=== PATIENT | female | born 1955 | race Caucasian/White ===

== ENCOUNTER 2016-06-30 08:36 | Outpatient (CLI) | payer BC ==
[~2016-06-30] VITALS: Ht 158.8 cm; Wt 84.5 kg
--- NOTE | ~2016-06-30 | HEMODYNAMI ---
PATIENT:CATINA HERNDON MEDICAL RECORD: [id number] : 53 LOCATION:[facility] ADMISSION DATE: 06/30/16 Generatedon:06/30/201612:12 Patient name: CATINA HERNDON Patient #: [id number] SSN: : 1955 Date of study: 06/30/2016 Page: Of Hemodynamic Procedure Report Patient Data Patient Demographics Procedure consent was obtained First Name: CATINA Gender: Female Last Name: KATRINA : 1955 Middle Initial: BILLY Age: 61 year(s) Patient #: [id number] Race: Additional ID: [id number] Contact details [address]: [address] [place] [address] State: [place] City: [place] Zip code: [address] Past Medical History History of disease Date Diagnosis Comments Diabetes 04/16/2014 Hypertension Allergies Allergen Reaction Date Comments Reported MALENA inhibitors 04/16/2014 Other allergy 06/30/2016 MALENA Inhibitors. Admission Admission Data Admission Date: 06/30/2016 Admission Time: 8:36 Admit Source: Other Insurance Payor: Private health insurance Height (in.): 62 BSA: 1.85 (m2) Height (cm.): 157.48 BMI: 34.02 (kg/m2) Weight (lbs.): 186 Weight (kg.): 84.37 Medications upon Admission Medications Dosage Times Administered Last Remarks per Delivery Day Date and Time Clopidogrel Yes 06/29/2016 0:00 Lab Results Lab Result Date: 06/30/2016 Lab Result Time: 9:16 Biochemistry Name Units Result Min Max BUN mg/dl 14 --(--*-)-- 7 18 Creatinine mg/dl 0.6 --(*---)-- 0.6 1.3 CBC Name Units Result Min Max Hematocrit % 39.2 -*(----)-- 42 54 Hemoglobin g/dl 13.4 -*(----)-- 13.5 17.5 Procedure Procedure Types Cath Procedure Diagnostic Procedure [facility] w/Coronaries PCI Procedure PTCA Initial PTCA Additional Miscellaneous Procedures Moderate Sedation up to 45 minutes Procedure Description Procedure Date Procedure Date: 06/30/2016 Procedure Start Time: 11:32 Procedure End Time: 12:09 Procedure Staff Name Function Jennifer Rahat RT Scrub Wayne Sampson RN Nurse Renard Hernandez MD Performing Physician Nolberto Hernandez RT Monitor Procedure Data Cath Procedure Fluoroscopy Diagnostic fluoroscopy Total fluoroscopy Time: time: 14.6 min 14.6 min Diagnostic fluoroscopy Total fluoroscopy dose: dose: 1473.19 mGy 1473.19 mGy Contrast Material Contrast Material Type Amount (ml) Isovue 300 170 Entry Location Entry Primary Successful Side Size Upsize Upsize Entry Closure Haley ccessful Closure Location (Fr) 1 (Fr) 2 (Fr) Remarks Device Remarks Radial Right 6 Fr Mechanical artery Short Compression Estimated blood loss: 10 ml Diagnostic catheters Device Type Used For End Catheter Placement Terumo 5Fr Cross Timbers 110cm Procedure catheter Procedure Complications No complications Procedure Medications Medication Administration Route Dosage Oxygen NC 2 l/min Heparin Flush Bag added to field 2 bags (1000units/500ml NS) 0.9% NaCl I.V. 100 ml/hr Radial Cocktail added to field 1 syringe (Verapomil 2mg/Nitro 400mcg/Heparin 1500units) Fentanyl I.V. 50 mcg Versed I.V. 1 mg Radial Cocktail I.A. 1 syringe (Verapomil 2mg/Nitro 400mcg/Heparin 1500units) Fentanyl I.V. 50 mcg Versed I.V. 1 mg Heparin Bolus I.V. 4000 units Hemodynamics Rest BSA: 1.85 (m2) HGB: 13.4 (g/dl) O2 Consumption: Estimated: 180.4 (ml/min) O2 Con sumption indexed: Estimated:97.51 (ml/min/m) Heart Rate: 79 (bpm) Snapshots Pre Cath Intra NCS Post Cath Vital Signs Time Heart Resp SPO2 NIBP (mmHg) Rhythm Pain Sedation Rate (ipm) (%) Status Level (bpm) 10:59:39 80 18 97 168/93(138) NSR 0 (11) 10(A) , No pain 11:04:12 78 19 96 158/96(139) NSR 0 (11) 10(A) , No pain 11:08:38 79 18 96 160/95(130) NSR 0 (11) 10(A) , No pain 11:13:06 80 21 96 155/89(138) NSR 0 (11) 10(A) , No pain 11:17:34 77 20 96 147/88(126) NSR 0 (11) 10(A) , No pain 11:21:59 78 20 95 141/87(115) NSR 0 (11) 10(A) , No pain 11:26:21 77 20 93 145/83(120) NSR 0 (11) 10(A) , No pain 11:30:43 76 19 92 129/80(109) NSR 0 (11) 9(A) , No pain 11:35:03 80 20 93 134/84(117) NSR 0 (11) 9(A) , No pain 11:39:28 81 20 93 139/76(111) NSR 0 (11) 9(A) , No pain 11:43:50 79 18 92 134/80(104) NSR 0 (11) 9(A) , No pain 11:48:04 80 20 93 128/79(111) NSR 0 (11) 9(A) , No pain 11:52:20 82 20 94 147/89(124) NSR 0 (11) 9(A) , No pain 11:56:46 82 20 93 152/87(132) NSR 0 (11) 9(A) , No pain 12:01:10 83 21 94 152/93(125) NSR 0 (11) 9(A) , No pain 12:04:29 82 20 93 153/91(129) NSR 0 (11) 9(A) , No pain 12:08:57 92 142/82(123) NSR 0 (11) 9(A) , No pain Medications Time Medication Route Dose Verified Delivered Reason Note s Effectiveness by by 11:12:36 Oxygen NC 2 l/min Wayne Black Per physician Adrián Sampson RN RN 11:12:44 Heparin Flush added 2 bags Wayne Black used for Bag to Adrián Sampson RN procedure (1000units/500ml field RN NS) 11:12:58 0.9% NaCl I.V. 100 Wayne Black Per physician ml/hr Adrián Sampson RN RN 11:13:06 Radial Cocktail added 1 Wayne Wayne used for (Verapomil to syringe Adrián Sampson RN procedure 2mg/Nitro field RN 400mcg/Hepari 11:26:21 Fentanyl I.V. 50 mcg Wayne Wayne for sedation Adrián Sampson RN RN 11:26:30 Versed I.V. 1 mg Wayne Wayne for sedation Adrián Sampson RN RN 11:33:37 Radial Cocktail I.A. 1 Wayne Renard for (Verapomil syringe Adrián Hernandez MD vasodilation 2mg/Nitro RN 400mcg/Hepari 11:33:44 Fentanyl I.V. 50 mcg Wayne Wayne for sedation Adrián Sampson RN RN 11:33:52 Versed I.V. 1 mg Wayne Wayne for sedation Adrián Sampson RN RN 11:39:03 Heparin Bolus I.V. 4000 Wayne Wayne for units Adrián Sampson RN anticoagulation editorial director Log Time Note 10:37:29 Informed consent obtained and on chart 10:38:32 Jennifer Giang RT(R) sent for patient. Start room use. 10:41:53 Lab Result : Hemoglobin 13.4 g/dl 10:41:53 Lab Result : Hematocrit 39.2 % 10:41:53 Lab Result : BUN 14 mg/dl 10:41:53 Lab Result : Creatinine 0.6 mg/dl 10:51:48 Patient received from Pre/Post Procedure Room to CCL 3 Alert and oriented. Tansferred to table in Supine position. 10:51:50 Warm blankets applied, and leann hugger turned on for patient comfort. 10:51:51 Correct patient and procedure confirmed by team. 10:51:52 ECG and BP/O2 sat monitors applied to patient. 10:58:13 Vital chart was started 10:58:17 Rhythm: sinus rhythm 11:06:12 Baseline sample Acquired. 11:06:50 H&P Date Dictated: 06/26/2016 Within 30 days and on chart., H&P Addendum completed by physician on day of procedure. (MUST COMPLETE FOR ALL OUTPATIENTS). 11:06:51 Pre-op teaching completed and patient verbalized understanding. 11:06:51 Pre-procedure instructions explained to patient. 11:06:52 Family in waiting room. 11:06:54 Patient NPO since Midnight. 11:07:09 Patient allergic to Other allergyACE Inhibitors. 11:07:12 Is the patient allergic to Iodine/contrast media? No. 11:08:11 Is patient on blood thinner?Yes 11:08:13 ACC The patient was administered the following blood thiners within the last 24 hours: ACCPlavix 11:08:15 Patient diabetic? Yes. 11:08:16 If diabetic: On Metformin? Yes 11:08:18 If on Metformin: Last Dose? 06/28/2016 11:08:21 Previous problem with sedation/anesthesia? No ? 11:08:23 Snore? Yes 11:08:24 Sleep apnea? No 11:08:25 Deviated septum? No 11:08:26 Sticks out tongue? Yes 11:08:26 Opens mouth fully? Yes 11:08:29 Airway obstruction? No ? 11:08:32 Dentures? Yes out 11:08:38 Modified Xavier's test Ulnar < 7 seconds 11:08:39 Patient pain scale 0/10 ?. 11:08:45 IV patent on arrival in left forearm with 0.9% NaCl at [facility]. 11:08:48 Lab results completed and on chart. 11:08:51 Alarms reviewed by R. N. 11:08:51 Right Radial & Right Groin area was prepped with chlora-prep and draped in sterile fashion 11:08:52 Sharps counted by scrub and verified by R.N. 11:08:55 Use device set Radial Dx 11:08:56 Acist Manifold opened to sterile field. 11:08:56 Tegaderm 4 x 4 opened to sterile field. 11:08:57 Acist Hand Control opened to sterile field. 11:08:58 Medline Cath Pack opened to sterile field. 11:08:58 Acist Syringe opened to sterile field. 11:09:00 Terumo 6Fr Slender Glidesheath opened to sterile field. 11:09:00 Bag Decanter opened to sterile field. 11:09:01 St Andre 260cm J .035 wire opened to sterile field. 11:10:24 Patient Height : 157.48 inches 11:10:29 Insurance Payor : Private health insurance 11:10:29 Patient Weight : 84.37 lbs 11:10:40 Admit Source: Other 11:10:50 ACC Patient presents with Stable Angina CCS Anginal Class 2--Slight limitation of ordinary activity. 11:12:36 Oxygen 2 l/min NC was given by Wayne Sampson RN; Per physician; 11:12:44 Heparin Flush Bag (1000units/500ml NS) 2 bags added to field was given by Wayne Sampson RN; used for procedure; 11:12:58 0.9% NaCl 100 ml/hr I.V. was given by Wayne Sampson RN; Per physician; 11:13:06 Radial Cocktail (Verapomil 2mg/Nitro 400mcg/Heparin 1500units) 1 syringe added to field was given by Wayne Sampson RN; used for procedure; 11:13:34 Zero performed for pressure channel P1 11:13:37 Zero performed for pressure channel P1 11:13:40 Zero performed for pressure channel P1 11:15:13 Zero performed for pressure channel P1 11:15:17 Zero performed for pressure channel P1 11:15:20 Zero performed for pressure channel P1 11:25:32 --------ALL STOP TIME OUT------ 11:25:33 Final Timeout: patient, procedure, and site verified with staff and physician. All members of the team are in agreement. 11:25:35 Right Radial & Right Groin site verified by team. 11:25:38 Physical assessment completed. ASA score P 2 - A patient with mild systemic disease as per Renard Hernandez MD. 11:25:41 Sedation plan: IV Moderate Sedation Versed, Fentanyl 11:26:21 Fentanyl 50 mcg I.V. was given by Wayne Sampson RN; for sedation; ::30 Versed 1 mg I.V. was given by Wayne Sampson RN; for sedation; ::17 Full Disclosure recording started ::17 Procedure started. 11::23 Local anesthetic to right radial artery with Lidocaine 2% by Renard Hernandez MD.INITIAL ACCESS ONLY 11:32:31 A 6 Fr Short sheath was inserted into the Right Radial artery 11:33:37 Radial Cocktail (Verapomil 2mg/Nitro 400mcg/Heparin 1500units) 1 syringe I.A. was given by Renard Hernandez MD; for vasodilation; 11:33:43 A Terumo 5Fr Cross Timbers 110cm catheter was advanced over the wire and used for Procedure. 11:33:44 Fentanyl 50 mcg I.V. was given by Wayne Sampson RN; for sedation; 11:33:48 LV gram done using MOY 11:33:51 Injector settings: Ml/sec: 5, Volume: 15, 11:33:52 Versed 1 mg I.V. was given by Wayne Sampson RN; for sedation; 11:34:17 EF : 50 % 11:34:40 LCA angiography performed. 11:36:28 RCA angiography performed. 11:37:34 Sungy Mobile BasixCompak Inflation Kit opened to sterile field. 11:37:35 Bradley Whisper J 300cm 0.014 guide wire opened to sterile field. 11:38:46 Catheter removed. 11:38:54 Medtronic Launcher 6Fr AR 2.0 guide catheter opened to sterile field. 11:39:00 6 Fr AR 2 guide catheter was inserted over the wire 11:39:03 Heparin Bolus 4000 units I.V. was given by Wayne Sampson RN; for anticoagulation; 11:39:26 whisper wire advanced. 11:40:36 ACC PCI Site: dRCA has 80% stenosis. 11:40:38 ACC Pre-intervention RANJANA Flow is 3. 11:40:45 Wire advanced across lesion. 11:43:32 Wire removed. damaged. 11:43:38 Bradley Whisper J 300cm 0.014 guide wire opened to sterile field. 11:43:45 whisper wire advanced. 11:43:47 Wire advanced across lesion. 11:44:42 The Medtronic Resolute 3.0 X 12 stent was advanced then removed because of failure to cross lesion 11:46:35 Inflation number: 1 A Euphora 2.5 x 12 Balloon was prepped and advanced across the R PDA, then inflated to 13 CAROL for 0:10 (min:sec). 11:46:46 Inflation number: 2 The Euphora 2.5 x 12 Balloon was reinflated across the R PDA, to 13 CAROL for 0:10 (min:sec). 11:47:33 Inflation number: 3 The Euphora 2.5 x 12 Balloon was reinflated across the R PDA, to 19 CAROL for 0:10 (min:sec). 11:47:51 Inflation number: 4 The Euphora 2.5 x 12 Balloon was reinflated across the R PDA, to 21 CAROL for 0:10 (min:sec). 11:48:25 Inflation number: 5 The Euphora 2.5 x 12 Balloon was reinflated across the R PDA, to 23 CAROL for 0:10 (min:sec). 11:48:26 Balloon removed over the wire. 11:51:33 [place] Sci Choice PT Extra Support J 300cm .014 gu opened to sterile field. 11:51:59 PT extra support wire advanced. 11:52:00 Wire advanced across lesion. 11:53:00 whisper wire removed 11:53:34 The Medtronic Resolute 3.0 X 12 stent was advanced then removed because of failure to cross lesion 11:54:43 Inflation number: 6 A Euphora 3.0 x 10 balloon was prepped and advanced across the R PDA, then inflated to 13 CAROL for 0:10 (min:sec). 11:56:12 Inflation number: 7 The Euphora 3.0 x 10 balloon was reinflated across the R PDA, to 17 CAROL for 0:10 (min:sec). 11:56:16 [place] Sci Choice PT Extra Support J 300cm .014 gu opened to sterile field. 11:56:25 choice PT es wire advanced. 11:57:23 Balloon removed over the wire. 12:00:25 The Medtronic Resolute 3.0 X 12 stent was advanced then removed because of failure to cross lesion 12:01:17 Inflation number: 1 The Euphora 3.0 x 10 balloon was reinflated across the R PAV, to 15 CAROL for 0:10 (min:sec). 12:02:03 Balloon removed over the wire. 12:02:04 Wire removed. 12:02:05 Wire removed. 12:03:38 Guide catheter removed. 12:03:47 Terumo TR Band Standard opened to sterile field. 12:03:59 Sheath removed intact; hemostasis achieved with Mechanical Compression to the Right Radial artery. 12:04:00 Procedure ended.(Physican Out) 12:04:57 Fluoroscopy time 14.60 minutes. 12:05:07 Fluoroscopy dose: 1473.19 mGy 12:05:07 Flurop Dose total: 1473.19 12:06:08 Contrast amount:Isovue 300 170ml. 12:06:09 Sharps counted by scrub and verified by R.N. 12:06:12 TR band inflated with 12cc of air. 12:06:13 Insertion/operative site no bleeding no hematoma. 12:06:19 Post right radial artery:stable, soft, clean and dry 12:06:20 Post Procedure Pulses reassessed and unchanged 12:06:22 Post-procedure physical assessment completed. ASA score P 2 - A patient with mild systemic disease as per Renard Hernandez MD. 12:06:24 Post procedure rhythm: unchanged. 12:06:30 Estimated blood loss: 10 ml 12:06:58 Patient needs reinforcement of post procedure teaching. 12:06:58 Post procedure instruction explained to patient.Patient verbalizes understanding. 12:07:48 Procedure type changed to Cath procedure, Diagnostic procedure, LHC, LHC w/Coronaries, PCI procedure, PTCA Initial, PTCA Additional, Miscellaneous Procedures, Moderate Sedation up to 45 minutes 12:09:31 Procedure and supply charges have been captured, reviewed, submitted and are correct. 12:09:33 Procedure Complication : No complications 12:09:35 See physician's report for complete and final results. 12:09:35 Vital chart was stopped 12:09:37 Report given to Pre/Post Procedure Room. 12:09:39 Patient transfered to Pre/Post Procedure Room with Stretcher. 12:09:40 Full Disclosure recording stopped 12:09:40 Procedure ended. 12:10:27 ACC-PCI Only Patient was given prescriptions, or instructed by Renard Hernandez MD to start/continue the following medications upon discharge: Plavix 12:10:57 End room use (Document Last) Intervention Summary Intervention Notes Time ActionType Lesion and Equipment Action# Pressure Duration Attributes Used 11:44:42 Discard Medtronic Stent Resolute 3.0 X 12 stent 11:46:35 Inflate R PDA Euphora 1 13 00:10 balloon 2.5 x 12 Balloon 11:46:46 Reinflate R PDA Euphora 2 13 00:10 balloon 2.5 x 12 Balloon 11:47:33 Reinflate R PDA Euphora 3 19 00:10 balloon 2.5 x 12 Balloon 11:47:51 Reinflate R PDA Euphora 4 21 00:10 balloon 2.5 x 12 Balloon 11:48:25 Reinflate R PDA Euphora 5 23 00:10 balloon 2.5 x 12 Balloon 11:53:34 Discard Medtronic Stent Resolute 3.0 X 12 stent 11:54:43 Inflate R PDA Euphora 6 13 00:10 balloon 3.0 x 10 balloon 11:56:12 Reinflate R PDA Euphora 7 17 00:10 balloon 3.0 x 10 balloon 12:00:25 Discard Medtronic Stent Resolute 3.0 X 12 stent 12:01:17 Reinflate R PAV Euphora 1 15 00:10 balloon 3.0 x 10 balloon Device Usage Item Name Manufacture Quantity Catalog Number Hospital Part Current Minim al Lot# / Charge Number Stock Stock Serial# Code Tegaderm 4 1 [id number] [id number] 216215 [id number] 5 x 4 Acist Acist 1 27256 476538 308330 249996 5 GiftLauncher Medical Systems Inc Acist Hand Acist 1 32225 367441 322624 911829 5 McPhy Systems Mobango Acist Acist 1 16201 914837 515503 613419 20 Syringe Medical Systems Inc Medline Cardinal 1 [id number] 521152 76796 283433 5 Cath Pack Health Bag Microtek 1 2002S 572479 97580 816872 5 Osmetech Inc. Terumo 6Fr Terumo 1 [id number] 985345 068556 363139 [address] Andre 1 [id number] 558924 568160 558122 30 260cm J .035 wire Terumo 5Fr Terumo 1 40-9362 108030 040652 527223 5 Cross Timbers 110cm catheter Merit Merit 1 [id number] 231020 134720 758387 15 [facility] Inflation Kit Bradley Bradley 2 [id number] 296075 094883 584954 5 Whisper J Vascular 300cm 0.014 guide wire Medtronic Medtronic 1 [id number] 803672 67877 884491 1 Launcher 6Fr AR 2.0 guide catheter Medtronic Medtronic 1 [id number] 147780 276287 7 [id number] Resolute 3.0 X 12 stent Euphora 2.5 Medtronic 1 [id number] 378267 798506 026750 5 [id number] x 12 Balloon [place] Sci [place] 2 [id number] 729819 530385 336113 5 Choice PT Scientific Extra Support J 300cm .014 gu Euphora 3.0 Medtronic 1 [id number] 770956 979794 046469 5 [id number] x 10 balloon Terumo TR Terumo 1 [id number] 643124 508234 497489 40 Band Standard Signature Audit [place] Stage Time Signature Unsigned Intra-Procedure 06/30/2016 Nolberto Hernandez 12:12:15 PM RT(R) Signatures Monitor : Nolberto Hernandez RT Signature : Date : Time : [id number] [place] [address]
[~2016-06-30 08:36] MED LIST: AMARYL1 MG; ASPIRIN EC81 M1 PO; CALTRATE 600 M600 M1; CORDARONE200 MG PO; FLUTICASONE PRO16 GM NS; GLUCOPHAGE1000 MG PO; HYDROCHLOROTHIA25 MG PO; HYDROCODON-ACE1 EA12 PO; IMDUR60 MG PO; METOPROLOL TAR100 M1 PO; MULTIPLE VITAMI1 TA1 PO; NIASPAN500 MG PO; NITROSTAT0.4 MG SL; NORVASC10 MG PO; PLAVIX75 MG PO; PRAVACHOL40 MG PO; PROSCAR5 MG PO; SYNTHROID75 MCG PO; VASERETIC 10-251 TAB
[2016-06-30] MEDS ORDERED: BUSPAR 15 MG TA15 MG PO (09:02)
[2016-06-30] MEDS ORDERED: GABAPENTIN100 MG PO (09:03)
[2016-06-30] MEDS ORDERED: VASOTEC20 MG PO (09:04)
[2016-06-30] MEDS ORDERED: IPRAT-ALBUT 0.5-3 ML UPD (09:07)
[2016-06-30 09:15] VITALS: BP 155/83; Ht 158.8 cm; Wt 84.5 kg
[2016-06-30 09:18] LABS: BASOPHILS 0.5 % (0.0-2.0); EOSINOPHILS 3.8 % (0-7); HEMATOCRIT 39.2 % (36.0-48.0); HEMOGLOBIN 13.4 g/dL (12-16); IMMATURE GRANULOCYTES 0.2 % (0-5); LYMPHOCYTES 20.8 % (15-50); MCHC 34.2 g/dL (31.0-37.0); MCV 90.7 fL (80.0-100.0); MEAN PLATELET VOLUME 10.1 fL (7.4-10.4); MONOCYTES 7.8 % (2-11); NEUTROPHILS 66.9 % (40-80); PLATELET COUNT 273 10x3/uL (130-400); RBC 4.32 10x6/uL (4.00-5.40); RDW 13.5 % (11.5-14.5); WBC 9.3 10x3/uL (4.8-10.8)
[2016-06-30 09:43] LABS: CALC OSMOLALITY 275 mosm/kg (275-300); CALCIUM 9.4 mg/dL (8.5-10.1); CARBON DIOXIDE 27.5 mmol/L (21.0-32.0); CHLORIDE - SERUM 99 mmol/L (98-107); CREATININE - SERUM 0.6 mg/dL (0.6-1.3); GLUCOSE 148 mg/dL (74-106); POTASSIUM - SERUM 4.2 mmol/L (3.5-5.1); SODIUM 136 mmol/L (136-145); UREA NITROGEN 14 mg/dL (7-18); eGFR NON AFRICAN AMERICAN > 90 mL/min (90-120)
--- NOTE | 2016-06-30 12:36 | NUR ---
VOIDED 600CC VIA BEDPAN. VITALS ALL WNL. R WRIST REMAINS C/D/I WITH NO HEMATOMA OR BLEEDING.
--- NOTE | 2016-06-30 15:09 | NUR ---
UP FROM BED, WHEELCHAIRED TO BATHROOM TO VOID. BACK TO BEDSIDE. SITTING UP. ALL VITASL WNL. R WRIST TR BAND REMAINS C/D/I WITH NO HEMATOMA OR BLEEDING.
--- NOTE | 2016-06-30 15:36 | NUR ---
2CC AIR REMOVED FROM R WRIST TR BAND. WILL MONITOR CLOSELY FOR BLEEDING. PIV REMOVED FROM LEFT HAND WITH BANDAID APPLIED.
--- NOTE | 2016-06-30 15:59 | NUR ---
REMAINING AIR REMOVED FROM TR BAND, TR BAND REMOVED AND TEGADERM AND 2X2 APPLIED. BRACE REMAINS IN PLACE. D/C INSTRUCTIONS DISCUSSED WITH PATIENT AND FAMILY AT BEDSIDE. WHEELED OUT VIA WHEELCHAIR.
--- NOTE | 2016-07-10 10:08 | OP ---
PATIENT NAME: CATINA HERNDON MEDICAL RECORD: [id number] :53 LOCATION:D.CAT ADMISSION DATE: SURGEON: KORY RAMIREZ MD DATE OF OPERATION: 06/30/2016 PROCEDURES: 1. PTCA RCA PLV. 2. PTCA RCA PDA. 3. Left heart catheterization. 4. Selective coronary angiography. 5. Left ventriculogram. INDICATION: Angina and coronary artery disease. PROCEDURE IN DETAIL: After informed consent was obtained and after detailed explanation of risks, benefits as well as alternative therapies, the patient elected to proceed with angiogram and angioplasty. The right radial area was prepped and draped in normal sterile fashion. Right radial artery was cannulated via modified Seldinger technique with placement of 6-Bruneian sheath. All catheters exchanged through this sheath. FINDINGS: The left ventriculogram was performed in standard 30-degree MOY view, reveals good cardiac wall motion throughout all segments. Overall ejection fraction estimated at 60%. SELECTIVE CORONARY ANGIOGRAPHY: 1. Left main is with no significant angiographic disease. 2. Left anterior descending has previously placed stents in the diagonal, this is widely patent. The LAD itself is totally occluded in mid vessel, is a chronic total occlusion, unchanged from previous angiography. 3. Left circumflex has moderate irregularities, but no flow-limiting stenosis. 4. The right coronary has previously placed stents, these are widely patent. However, distally at the bifurcation of the PDA and PLV, there is at least 70% to 80% in-stent restenosis. PTCA FOR IN-STENT RESTENOSIS: We ballooned the stent going from the RCA to the PDA. This yielded a plaque shift to the PLV. We then wired the PLV and ballooned this with 3.0 balloon of 21 atmospheres. Result was 0% residual. IMPRESSION: Successful percutaneous transluminal coronary angioplasty stent of the distal RCA angioplasty for in-stent restenosis, 70% to 80% to 0% residual stenosis. TRANSINT:[id number] Voice Confirmation ID: [id number] DOCUMENT ID: [id number] KORY RAMIREZ MD at 1008 CC: [id number] DICTATION DATE: 06/30/16 1206 FRAME MAKER: 06/30/16 1856 DEP CLI 06/30/16 [place] [address]
== END 2016-06-30 16:01 | disposition home or self-care (01) ==
LOC: D.CATH 08:36
PROVIDERS: Internal Medicine Interventional Cardiology
DX: I25.119 Atherosclerotic heart disease of native coronary artery with unspecified angina pectoris (principal); I25.82 Chronic total occlusion of coronary artery; T82.855A Stenosis of coronary artery stent, initial encounter

== ENCOUNTER → 2017-01-25 13:55 | Outpatient (CLI) | payer BC ==
[2016-06-30 09:15] VITALS: BMI 33.5
[~2017-01-25 13:55] MED LIST changes: +BUSPAR 15 MG TA15 MG PO; +GABAPENTIN100 MG PO; +IPRAT-ALBUT 0.5-3 ML UPD; +VASOTEC20 MG PO
== END | disposition home or self-care (01) ==
LOC: D.MAMMO 13:55
DX: Z12.31 Encounter for screening mammogram for malignant neoplasm of breast (principal)

== ENCOUNTER → 2017-03-12 08:42 | Outpatient (CLI) | payer BC ==
[2016-06-30 09:15] VITALS: BMI 33.5
[~2017-03-12 08:42] MED LIST changes: -CALTRATE 600 M600 M1; +CALTRATE 600 M600 M1 PO; +COREG25 MG PO; +FLUTICASONE PRO16 GM NASAL; +PROVENTIL HFA6.7 GM INH; +ROBITUSSIN DM 110 ML PO
== END | disposition home or self-care (01) ==
LOC: D.RT 08:42
DX: R06.00 Dyspnea, unspecified (principal)

== ENCOUNTER 2017-04-05 08:00 | Outpatient (CLI) | payer BC ==
[~2017-04-05] VITALS: Ht 157.5 cm; Wt 85.5 kg
[~2017-04-05 08:00] MED LIST changes: -COREG25 MG PO; -FLUTICASONE PRO16 GM NASAL; -PROVENTIL HFA6.7 GM INH; -ROBITUSSIN DM 110 ML PO
[2017-04-05] MEDS ORDERED: COREG25 MG PO (11:45)
[2017-04-05] MEDS ORDERED: FLUTICASONE PRO16 GM NASAL (11:46)
[2017-04-05] MEDS ORDERED: PROVENTIL HFA6.7 GM INH (11:46)
[2017-04-05 11:51] VITALS: BP 144/80; Ht 157.5 cm; Wt 85.5 kg
[2017-04-05 11:58] LABS: HEMATOCRIT 43.8 % (36.0-48.0); HEMOGLOBIN 14.8 g/dL (12-16); MCH 30.5 pg (26.0-34.0); MCHC 33.8 g/dL (31.0-37.0); MCV 90.3 fL (80.0-100.0); MEAN PLATELET VOLUME 10.3 fL (7.4-10.4); RBC 4.85 10x6/uL (4.00-5.40); RDW 14.7 % (11.5-14.5); WBC 10.5 10x3/uL (4.8-10.8)
[2017-04-05 12:36] LABS: CALC OSMOLALITY 273 mosm/kg (275-300); CALCIUM 9.1 mg/dL (8.5-10.1); CARBON DIOXIDE 25.8 mmol/L (21.0-32.0); CHLORIDE - SERUM 100 mmol/L (98-107); CREATININE - SERUM 0.6 mg/dL (0.6-1.3); GLUCOSE 147 mg/dL (74-106); POTASSIUM - SERUM 4.6 mmol/L (3.5-5.1); SODIUM 136 mmol/L (136-145); UREA NITROGEN 11 mg/dL (7-18); eGFR NON AFRICAN AMERICAN > 90 mL/min (90-120)
--- NOTE | 2017-04-05 16:22 | NUR ---
1440 DISCHARGE INSTRUCTIONS COMPLETE. PT HAS NO QUESTIONS OR CONCERNS AT THIS TIME. BARIUM SWALLOW SCHEDULED. ESCORTED OUT BY VOLUNTEER.
--- NOTE | 2017-04-11 12:46 | OP ---
PATIENT NAME: CATINA HERNDON MEDICAL RECORD: [id number] :53 LOCATION:[facility] ADMISSION DATE: SURGEON: MARVIN ENG MD DATE OF OPERATION: 04/05/2017 PROCEDURE: EGD with biopsy and colonoscopy with polypectomy. INDICATIONS: Ms. 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 She has had a history of paroxysmal dysphagia, which she attributes to possible impingement of hardware from her C-spine surgery. She has had no nausea, vomiting, abdominal pain, melena, hematochezia, or abnormal weight loss. She presents for outpatient EGD and screening colonoscopy. PREMEDICATIONS: Total IV anesthesia (propofol 390 mg), coronary artery disease (ASA 3). INSTRUMENT: Olympus video gastroscope and Olympus video colonoscope. PROCEDURE AND FINDINGS: After receiving informed consent, Ms. Herndon was first prepared for EGD. Her posterior pharynx was anesthetized with Cetacaine spray, placed in left lateral decubitus position, sedated as per anesthesia. After achieving adequate sedation, gastroscope was introduced per orally and advanced to the duodenum without difficulty. The esophageal mucosa was without ulcers or masses. There was no Schatzki's ring appreciated on this exam, but the GE junction was remarkable for an irregular Z-line. Biopsies were taken from the distal third of the esophagus. Small sliding type hiatal hernia was present. Gastric mucosa was notable for mild prepyloric and antral erythema and antral biopsies were obtained to rule out Helicobacter pylori. No lesions were seen in the cardia, fundus of the stomach. There was a mild nodularity to the appearance of the mucosa in the body of the stomach and biopsies were obtained. Pylorus was patent and competent. Duodenal mucosa was without erythema or ulcers, appeared normal through the second portion. Gastroscope was then withdrawn. She was prepared for colonoscopy. Digital rectal exam was performed that showed no external hemorrhoidal tags, fissure, or fistulas. Normal sphincter tone. No palpable rectal masses. Colonoscope was introduced per rectally and advanced to the cecum without difficulty. The cecum, IC valve, and appendiceal orifice were identified. Within the cecum was a solitary diverticulum. In the appendiceal orifice area was a diminutive 0.25-0.3 cm sessile polyp removed with hot biopsy forcep technique. Additionally, within the cecum was a 0.75 cm sessile polyp removed with hot biopsy forceps technique. A few diverticula were seen in the ascending colon and likewise in the sigmoid colon. In the sigmoid colon was a 0.3 cm sessile polyp removed with hot biopsy forcep technique. Retroflexion in rectum showed no internal hemorrhoids. A good prep was present. Ms. Herndon tolerated the procedure well, no immediate complications. ASSESSMENT: 1. Small sliding type hiatal hernia. 2. Mild gastritis. 3. Mild diverticulosis of the sigmoid, transverse, ascending colon, and cecum. 4. Two cecal polyps status post polypectomy. OPERATIVE REPORT [id number] KATRINACATINA BILLY 5. Sigmoid polyp status post polypectomy. RECOMMENDATIONS: 1. Follow up histopathology. 2. Avoid aspirin, nonsteroidal anti-inflammatory drugs for 14 days post-polypectomy. 3. Resume Plavix. 4. Barium swallow to rule out posterior pharyngeal etiology of pill dysphagia. 5. Surveillance colonoscopy in 3 years. TRANSINT:[id number] Voice Confirmation ID: [id number] DOCUMENT ID: [id number] MARVIN ENG MD at 1246 CC: JHOAN GORDON MD [id number] DICTATION DATE: 04/05/17 1340 MOLTEN IRON POURER: 04/05/17 1356 DEP CLI 04/05/17 [facility] [address] [place] [address]
== END 2017-04-05 23:59 | disposition home or self-care (01) ==
LOC: D.OPS 08:00 → EDSTATUS 12:30 → D.OPS 12:30
PROVIDERS: Anesthesiology
DX: Z12.11 Encounter for screening for malignant neoplasm of colon (principal); K44.9 Diaphragmatic hernia without obstruction or gangrene; K29.50 Unspecified chronic gastritis without bleeding; K57.30 Diverticulosis of large intestine without perforation or abscess without bleeding; K63.5 Polyp of colon; I25.10 Atherosclerotic heart disease of native coronary artery without angina pectoris; Z01.812 Encounter for preprocedural laboratory examination

== ENCOUNTER 2017-04-09 06:28 | Emergency (ER) | payer BC ==
[2017-04-05 11:51] VITALS: BMI 34.4
[~2017-04-09 06:28] MED LIST changes: +COREG25 MG PO; +FLUTICASONE PRO16 GM NASAL; +PROVENTIL HFA6.7 GM INH
[2017-04-09 07:06] LABS: BASOPHILS 0.2 % (0-2); HEMATOCRIT 42.6 % (36.0-48.0); HEMOGLOBIN 14.5 g/dL (12-16); IMMATURE GRANULOCYTES 0.1 % (0-5); LYMPHOCYTES 12.2 % (15-50); MCH 30.3 pg (26.0-34.0); MCV 89.1 fL (80.0-100.0); MEAN PLATELET VOLUME 9.7 fL (7.4-10.4); MONOCYTES 7.2 % (2-11); NEUTROPHILS 79.3 % (40-80); PLATELET COUNT 214 10x3/uL (130-400); RBC 4.78 10x6/uL (4.00-5.40); RDW 14.2 % (11.5-14.5); WBC 8.3 10x3/uL (4.8-10.8)
[2017-04-09 07:14] LABS: INR 0.99 (0.85-1.17); PROTIME 12.7 SECONDS (11.6-15.0)
[2017-04-09 07:15] LABS: APTT 32.8 SECONDS (22.8-39.4)
[2017-04-09 07:32] LABS: ALBUMIN 3.5 g/dL (3.4-5.0); ALKALINE PHOSPHATASE 51 U/L (46-116); ALT (SGPT) 20 U/L (10-68); BILIRUBIN - TOTAL 0.38 mg/dL (0.2-1.3); CALC OSMOLALITY 273 mosm/kg (275-300); CALCIUM 9.5 mg/dL (8.5-10.1); CARBON DIOXIDE 25.8 mmol/L (21.0-32.0); CHLORIDE - SERUM 98 mmol/L (98-107); CREATININE - SERUM 0.6 mg/dL (0.6-1.3); GLUCOSE 193 mg/dL (74-106); POTASSIUM - SERUM 3.7 mmol/L (3.5-5.1); PROTEIN - SERUM 7.3 g/dL (6.4-8.2); SODIUM 135 mmol/L (136-145); UREA NITROGEN 9 mg/dL (7-18); eGFR NON AFRICAN AMERICAN > 90 mL/min (90-120)
[2017-04-09 07:36] LABS: APPEARANCE HAZY (CLEAR); BILIRUBIN NEGATIVE (NEGATIVE); COLOR YELLOW (YELLOW); GLUCOSE 250 mg/dL (NEGATIVE); KETONE NEGATIVE (NEGATIVE); NITRITE POSITIVE (NEGATIVE); PROTEIN 2+ mg/dL (NEGATIVE); SPECIFIC GRAVITY 1.015 (1.005-1.020); UROBILINOGEN NORMAL (NORMAL)
[2017-04-09 07:39] LABS: BACTERIA MANY /hpf (NONE SEEN); RED CELLS - URINE 0-5 /hpf (0-5)
[2017-04-09 07:44] LABS: CKMB 4.9 U/L (0.0-3.6); CREATINE KINASE 201 UL (21-215); MAGNESIUM - SERUM 1.6 mg/dL (1.8-2.4); TROPONIN-I < 0.017 ng/mL (0.000-0.060)
== END 2017-04-09 10:08 | disposition other institution (70) ==
LOC: D.ER 06:28
PROVIDERS: Emergency Medicine
DX: I63.9 Cerebral infarction, unspecified (principal); I10 Essential (primary) hypertension; E11.9 Type 2 diabetes mellitus without complications

== ENCOUNTER 2017-04-12 14:49 | Inpatient (IN) | payer BC ==
[~2017-04-12] VITALS: Ht 157.5 cm; Wt 77.1 kg
[2017-04-12 18:20] VITALS: BP 110/69; BMI 31.1
--- NOTE | 2017-04-12 19:00 | NUR ---
INTRODUCED MYSELF TO PATIENT AND FAMILY MEMBERS. TOLD HER I HAVE NOT YET RECEIVED REPORT BUT WILL RETURN TO SEE HER AFTER SHIFT REPORT IS COMPLETE. VERIFIED SHE HAS NO CURRENT NEEDS.
[2017-04-12] MEDS ORDERED: ROBITUSSIN DM 110 ML PO (19:45)
--- NOTE | 2017-04-12 20:30 | NUR ---
REMAINS IN BED. DENIES CURRENT NEEDS. ONE OF HER SONS REMAINS AT BEDSIDE.
--- NOTE | 2017-04-12 21:30 | NUR ---
ASSISTED PATIENT TO SIT UP ON RIGHT SIDE OF BED AT HER REQUEST. SON TOOK A SEAT NEXT TO HER ON LEFT FOR SUPPORT. WILL CALL WHEN READY TO GET BACK IN BED.
--- NOTE | 2017-04-12 21:40 | NUR ---
ASSISTED PATIENT BACK INTO BED WITH ASSISTANCE FROM HER SON.
[2017-04-12 22:20] VITALS: BP 166/70
--- NOTE | 2017-04-12 22:20 | NUR ---
ASSESSMENT AND HS MEDS COMPLETE. MEDS GIVEN CRUSHED IN APPLESAUCE EXCEPT IMDUR 30MG WHICH SHE WAS ABLE TO SWALLOW SUCCESSFULLY WHEN GIVEN WHOLE IN APPLESAUCE. HOWEVER, DUE TO VERY LARGE SIZE OF NIACIN 500MG ER TAB, IT WAS HELD, IT CANNOT BE CRUSHED DUE TO SIDE EFFECTS. WILL KATE THIS UP WITH DR. SANTIAGO TOMORROW. REPOSITIONED PATIENT TO PARTIAL RIGH SIDELYING POSITION.
--- NOTE | 2017-04-12 23:05 | NUR ---
FSBS 118. TURNED PATIENT TO PARTIAL LEFT SIDELYING POSITION WITH PILLOWS FOR SUPPORT.
--- NOTE | 2017-04-13 00:20 | NUR ---
RESTING QUIETLY ON LEFT SIDE. NO DISCOMFORT EVIDENT.
--- NOTE | 2017-04-13 02:15 | NUR ---
CHANGED PATIENT'S POSITION FROM LEFT SIDELYING TO PARTIAL RIGHT SIDELYING WITH HOB UP 30 DEGREES.
--- NOTE | 2017-04-13 04:45 | NUR ---
RESTING QUEITLY IN BED, EYES CLOSED.
--- NOTE | 2017-04-13 05:15 | NUR ---
PATIENT WAS CLEANSED AND CHANGED FROM LARGE URINE INCONTINENCE. REQUIRED COMPLETE BED LINEN AND GOWN CHANGE. PATIENT HAD ATTEMPTED TO URINATE ON BEDPAN AROUND 0100 BUT PRODUCED ONLY A FEW DROPS OF URINE AT THAT TIME.
--- NOTE | 2017-04-13 06:10 | NUR ---
PATIENT SOMNOLENT AND DIFFICULT TO AWAKEN FULLY. RESPONDS TO TOUCH AND CALLING HER NAME. FSBS 126. WAS GOING TO HAVE HER SIGN ADMISSION DOCUMENTS WHICH I DEFERRED LAST NIGHT DUE TO THE LATENESS OF THE HOUR AND PATIENT BEING VERY TIRED. WILL HAVE TO HAVE THEM SIGNED ON DAY SHIFT WHEN PATIENT IS MORE ALERT.
[2017-04-13 07:36] LABS: BASOPHILS 0.5 % (0-2); EOSINOPHILS 2.8 % (0-7); HEMATOCRIT 45.4 % (36.0-48.0); HEMOGLOBIN 15.1 g/dL (12-16); IMMATURE GRANULOCYTES 0.4 % (0-5); LYMPHOCYTES 14.8 % (15-50); MCH 29.9 pg (26.0-34.0); MCHC 33.3 g/dL (31.0-37.0); MCV 89.9 fL (80.0-100.0); MEAN PLATELET VOLUME 10.6 fL (7.4-10.4); MONOCYTES 10.8 % (2-11); NEUTROPHILS 70.7 % (40-80); PLATELET COUNT 253 10x3/uL (130-400); RBC 5.05 10x6/uL (4.00-5.40); RDW 14.4 % (11.5-14.5); WBC 7.9 10x3/uL (4.8-10.8)
[2017-04-13 07:52] LABS: CALC OSMOLALITY 277 mosm/kg (275-300); CARBON DIOXIDE 24.2 mmol/L (21.0-32.0); CHLORIDE - SERUM 101 mmol/L (98-107); CREATININE - SERUM 0.6 mg/dL (0.6-1.3); POTASSIUM - SERUM 3.5 mmol/L (3.5-5.1); SODIUM 136 mmol/L (136-145); UREA NITROGEN 27 mg/dL (7-18); eGFR NON AFRICAN AMERICAN > 90 mL/min (90-120)
[2017-04-13 07:57] LABS: GLUCOSE 123 mg/dL (74-106)
--- NOTE | 2017-04-13 08:28 | NUR ---
SITTING UP EATING BREAKFAST. DENIES NEEDS.
[2017-04-13 11:00] VITALS: Ht 157.5 cm; Wt 77.1 kg
--- NOTE | 2017-04-13 11:17 | NUR ---
PATIENT ADMITTED TO REHAB FROM [facility]. DISCHARGE PLANS ARE FOR PATIENT TO HOPEFULLY TO RETURN HOME. WILL CONTINUE TO FOLLOW WITH PATIENT AND WILL ASSIST WITH DISCHARGE NEEDS.
--- NOTE | 2017-04-13 13:15 | NUR ---
PT COMPLAINS OF CHEST DISCOMFORT VITAL SIGNS NORMAL EKG AND CARDIAC ENZEMEYS PER DR ORDER PT STATES SHE TAKES NITRO AT HOME WILL ASK DR IF HE WANTS TO CONTINUE THIS MED WILL MONITER
[2017-04-13 14:31] LABS: CKMB 1.5 U/L (0.0-3.6); CREATINE KINASE 78 UL (21-215); TROPONIN-I 0.017 ng/mL (0.000-0.060)
--- NOTE | 2017-04-13 19:20 | NUR ---
PT. IN BED WITH HOB UP FOR COMFORT AND LYING ON HER SIDE. MULTIPLE FAMILY MEMBERS PRESENT AND SPOUSE SAID HE WILL BE STAYING THE NIGHT. ASSESSMENT COMPLETED. NO VOICED NEEDS AT THIS TIME AND HER CALL LIGHT IS WITHIN REACH.
[2017-04-13 19:55] VITALS: BP 112/60
--- NOTE | 2017-04-13 23:10 | NUR ---
PT. IN BED WITH HOB UP FOR COMFORT AND LYING ON HER LEFT SIDE WITH PILLOW AT BACK FOR SUPPORT. EYES CLOSED AND RESP. EVEN. SPOUSE ASLEEP IN CHAIR NEXT TO PT. CALL LIGHT WITHIN REACH.
--- NOTE | 2017-04-14 03:01 | NUR ---
PT. IN BED WITH HOB/FOB ELEVATED FOR COMFORT. PT. LYING ON HER RIGT SIDE. EYES CLOSED AND RESP. EVEN. SON NOW WITH PT. SPOUSE WENT HOME. CALL LIGHT WITHIN REACH.
[2017-04-14 09:40] VITALS: BP 118/62
--- NOTE | 2017-04-14 10:37 | NUR ---
PT PLACED ON BEDPAN TWICE THIS MORNING FEELING THE URGE TO USE THE RESTROOM, PT WAS UNABLE TO GO ONCE ON BEDPAN, ATE A FEW BITES OF BREAKFAST THEN STATED REALLY TIRED, ASKED IF SHE HAD TROUBLE SLEEPING PT STATED SLEPT FINE JUST ALWAYS TIRED. FAMILY AT BEDSIDE, BED IN LOW POSITION, CL IN REACH NO SIGNS OF DISTRESS, CONTINUE WITH PLAN OF CARE, TOLD PT WE NEEDED TO TURN HER MORE DUE TO REDNESS ON BACK AND BOTTOM.
--- NOTE | 2017-04-14 12:43 | NUR ---
PT REFUSED LUNCH. STATED HSE IS TOO TIRED TO EAT NOT HUNGRY. ENCOURAGED TO DRINK WATER AND ASKED IF SHE WANTED PUDDING, PT REFUSED AT THIS TIME
--- NOTE | 2017-04-14 16:00 | NUR ---
RESTING QUIETLY.CL IN REACH. AT BEDSIDE.
--- NOTE | 2017-04-14 19:20 | NUR ---
PT. IN BED LYING ON HER RIGHT SIDE. PT. HAS MULTIPLE FAMILY MEMBERS AND THEY ARE LEAVING FOR THE EVENING. SPOUSE WILL STAY TONIGHT. ASSESSMENT COMPLETED. NO VOICED NEEDS AT THIS TIME AND HER CALL LIGHT IS WITHIN REACH.
[2017-04-14 19:45] VITALS: BP 146/66
--- NOTE | 2017-04-14 23:10 | NUR ---
PT. WET AND PT. CLEANED AND LINENS CHANGED. REPOSITIONED PT. TO OTHER SIDE ALSO AT HER REQUEST. SPOUSE STAYING IN ROOM WITH PT. CALL LIGHT WITHIN REACH.
--- NOTE | 2017-04-15 03:00 | NUR ---
PT. IN BED WITH HOB UP FOR COMFORT AND IS LYING ON SIDE WITH PILLOWS AT BACK FOR SUPPORT. EYES CLOSED AND RESP. EVEN. SPOUSE IN ROOM AND IS ASLEEP. CALL LIGHT REMAINS WITHIN REACH.
--- NOTE | 2017-04-15 08:00 | NUR ---
PATIENT ALERT/OREINT X4. AT BEDSIDE. PATIENT IS A TOTAL ASST. UNABLE TO MOVE IN BED, UNABLE TO GET OUT OF BED WITHOUT HELP. BED ALARM ON PER PROTOCHOL. CALL LIGHT WITHIN REACH. PATIENT USING CALL LIGHT FOR NEEDS
--- NOTE | 2017-04-15 08:22 | NUR ---
PATIENT ALERT/ORIENT X4. AT BEDSIDE. PATIENT UNABLE TO MOVE IN BED OR GET OUT OF BED BY SELF. BED ALARM ON PER PROTOCHOL. CALL LIGHT WITHIN REACH.
[2017-04-15 08:37] VITALS: BP 146/59
--- NOTE | 2017-04-15 11:00 | NUR ---
PATIENT IS ASKED FOR A BED CRAFT. TOTAL ASST OF TWO TO PUT PATIENT ON A BED CRAFT. PATIENT IS FLACCID ON LEFT SIDE.
--- NOTE | 2017-04-15 14:47 | NUR ---
PATIENT HAS MULTIPLE VISITORS IN ROOM. VOICES NO NEEDS AT THIS TIME.
--- NOTE | 2017-04-15 17:27 | NUR ---
VISITORS AND FAMILY AT BEDSIDE.CL IN REACH.
--- NOTE | 2017-04-15 17:36 | NUR ---
PRN NORCO GIVEN FOR NECK AND BACK PAIN PER PATIENT REQUEST
--- NOTE | 2017-04-15 19:15 | NUR ---
PT. IN BED LYING ON LEFT SIDE WITH HOB UP FOR COMFORT. FAMILY MEMBERS PRESENT AND VISITING. CALL LIGHT WITHIN REACH.
--- NOTE | 2017-04-15 20:05 | NUR ---
TALKS TO PT AT ROOM.
--- NOTE | 2017-04-15 20:35 | NUR ---
MEDS GIVEN ORDERED.
[2017-04-15 22:18] VITALS: BP 106/39
--- NOTE | 2017-04-16 02:12 | NUR ---
REST QUIETLY IN BED, HOB 30 DEGREE, CALL LIGHT IN REACH.
--- NOTE | 2017-04-16 04:13 | NUR ---
REST QUIETLY IN BED, CALL LIGTH IN REACH.
--- NOTE | 2017-04-16 06:42 | NUR ---
RECEIVED CALL FROM THE DIET OFFICE THAT PT'S DIET HAS BEEN REMOVED FROM THE COMPUTER. I HAD A CONVERSATION WITH THE SPEECH THERAPIST ON SUNDAY AND SHE STATED THAT SHE HAD UPGRADED PT'S DIET TO MECHANICAL SOFT AND SHE WAS TO ORDER IT IN THE COMPUTER SHE HAD FILLED OUT PT'S WEEKEND MENUS SO THAT PT. WOULD GET THE UPGRADED DIET. SPOUSE REPORTED TO ME AT THE BEGINNING OF THE SHIFT THAT PT. DOESN'T LIKE GRAVY AND EVERYTHING THIS WEEKEND HAD GRAVY ON IT. I INFORMED SPOUSE THAT HE NEEDS TO GET WITH THE SPEECH THERAPIST TO LET HER, KAELA, KNOW PT'S LIKES AND DISLIKES TO PREVENT THIS FROM HAPPENING AGAIN, AND SPOUSE SAID HE WOULD. THIS INFO WILL ALSO BE PASSED ON TO NEXT SHIFT'S NURSE IN REPORT.
[2017-04-16 06:56] LABS: BASOPHILS 0.4 % (0-2); EOSINOPHILS 1.8 % (0-7); HEMATOCRIT 46.1 % (36.0-48.0); HEMOGLOBIN 15.4 g/dL (12-16); IMMATURE GRANULOCYTES 0.3 % (0-5); LYMPHOCYTES 20.7 % (15-50); MCH 30.1 pg (26.0-34.0); MCHC 33.4 g/dL (31.0-37.0); MEAN PLATELET VOLUME 10.6 fL (7.4-10.4); MONOCYTES 11.1 % (2-11); NEUTROPHILS 65.7 % (40-80); RBC 5.12 10x6/uL (4.00-5.40); RDW 14.3 % (11.5-14.5); WBC 7.8 10x3/uL (4.8-10.8)
[2017-04-16 07:00] LABS: PLATELET COUNT 305 10x3/uL (130-400)
[2017-04-16 07:21] LABS: ANION GAP 18.6 mmol/L (8-16); CALCIUM 9.8 mg/dL (8.5-10.1); POTASSIUM - SERUM 3.6 mmol/L (3.5-5.1); THYROID STIMULATING HORMONE 3.87 uIU/mL (0.36-3.74)
[2017-04-16 08:51] VITALS: BP 127/66
--- NOTE | 2017-04-16 09:05 | NUR ---
PT AM MEDS ADMINISTERED. PT DENIES NEEDS AT THIS TIME. WCTM.
--- NOTE | 2017-04-16 11:40 | NUR ---
NOTIFIED BY THERAPIST THAT PT BP RUNNING LOW AND PT VERY TIRED. PT RETURNED TO BED, FEET ELEVATED. WCTM.
--- NOTE | 2017-04-16 12:30 | NUR ---
PT BP UP TO 107/53. PT SAT UP AND ADJUSTED TO EAT LUNCH. WCTM.
--- NOTE | 2017-04-16 18:03 | NUR ---
PT COREG HELD DUE TO LOW BP ALL DAY. WCTM.
--- NOTE | 2017-04-16 19:05 | NUR ---
ASSISTED PATIENT OFF BEDPAN ON WHICH I HAD EARLIER PLACED HER. PATIENT HAD A VERY SMALL UNFORMED BM. NO URINE EVIDENT. CLEANSED HER AND REMOVED HER BRIEF FOR THE NIGHT TO ALLOW HER SKIN TO AIR OUT (PATIENT REQUEST). CURRENTLY LYING ON LEFT SIDE. SONS VISITING, BUT REMAINING IN THE [place] WHILE PATIENT TOILETS.
[2017-04-16 20:25] VITALS: BP 135/58
--- NOTE | 2017-04-16 20:25 | NUR ---
ASESSMENT AND HS MEDS COMPLETE. GAVE PATIENT NORCO 5 X1 TAB PO FOR PAIN LEVEL OF 8/10 IN HER HIPS AND LOW BACK. WITH ASSISTANCE FROM HER SONS, REPOSITIONED PATIENT HIGHER UP IN BED FOR COMFORT.
--- NOTE | 2017-04-16 22:15 | NUR ---
VISITING SONS HAVE BEEN REPLACED BY PATIENT'S WHO IS NOW AT SEATED AT BEDSIDE. PATIENT IS CURRENTLY TURNED TO PARTIAL RIGHT SIDELYING POSITION WITH HOB UP 15 DEGREES. RESTING QUIETLY WITH EYES CLOSED.
--- NOTE | 2017-04-17 00:10 | NUR ---
RESTING QUIETLY IN PARTIAL RIGHT SIDELYING POSITION. NO DISTRESS EVIDENT. AWAKE. REMAINS SEATED AT BEDSIDE.
--- NOTE | 2017-04-17 01:55 | NUR ---
REPOSITIONED PATIENT TO PARTIAL LEFT SIDELYING POSITION AFTER SHE RECENTLY RECEIVED A NORCO 5/325 TABLET FOR PAIN LEVEL OF 10/10 IN BILAT HIPS. ASSISTED ME TO REPOSITION PATIENT.
--- NOTE | 2017-04-17 03:45 | NUR ---
PATIENT NOW ON BACK WITH HOB UP 20 DEGREES. SON NOW SEATED @ BEDSIDE MR. HERNDON () HAS GONE HOME. PATIENT RESPIRING QUIETLY. APPEARS COMFORTABLE.
--- NOTE | 2017-04-17 05:50 | NUR ---
REMIANS IN BED, EYES CLOSED. NO EVIDENT DISCOMFORT.
--- NOTE | 2017-04-17 07:26 | NUR ---
LYING IN BED ON LEFT SIDE EYES CLOSED RESTING. APPROPRIATE RISE AND FALL OF CHEST. NO S/SX OF RESPIRATORY DISTRESS NOTED. CALL LIGHT AND PERSONAL ITEMS WITHIN REACH, BED LOW AND ALARM ON. WILL CONTINUE TO MONITOR
[2017-04-17 07:59] VITALS: BP 113/51
--- NOTE | 2017-04-17 09:27 | NUR ---
Nutrition Follow Up: Pt was very sleepy at the time of RD visit and had difficulty staying awake while speaking. Pt stated that she is alright but very tired. Spoke with nursing who reported that pt has not been eating well despite encouragement from family and staff. Pt is eating 39% meal avg on a regular [facility] soft diet. She is receiving Ensure TID. +BM 04/17/17. Meds and labs reviewed. Rec continue regular diet with LOSS PREVENTION OPERATIONS MANAGER recs for consistencies. Rec consider an appetite stimulant. Will continue Ensure TID. RD following.
--- NOTE | 2017-04-17 12:28 | NUR ---
PT SITTING UP IN BED EATING LUNCH WITH ASSISTANCE FROM SON. DENIES ANY NEEDS OR PAIN. NO S/SX OF ACUTE DISTRESS NOTED. CALL LIGHT AND PERSONAL ITEMS WITHIN REACH, BED LOW AND ALARM ON. WILL CONTINUE TO MONITOR
--- NOTE | 2017-04-17 13:13 | RHP ---
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 HISTORY OF PRESENT ILLNESS: The patient is a 62-year-old female patient admitted to the inpatient rehab with acute right temporal lobe infarct. She is a right-handed female with history of coronary artery disease, COPD, diabetes and tobacco use. Her spouse reported history that he awoke at 5:00 a.m., he found her on the floor with slurred speech and left-sided weakness. She was originally brought to the Emergency Room at [facility]. Her CT scan showed a right temporal lobe infarct. Thrombolytics were not given secondary to unsure of the time. Due to no neurology coverage, she was transferred to [facility] for neurology consult workup. She is already on Plavix and aspirin secondary to her coronary artery disease, but has been off of it for 5 days to prepare for colonoscopy. She had resumed her Plavix and aspirin on 04/05/2017, MRI at [facility] confirm the diagnosis of right temporal lobe infarction. Previously, she lived at home with her , was independent with ADLs and mobility. 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 She drives. She does her own housework and care for her family. Currently, she is moderate to max assist for ADLs and mobility. She has left-sided weakness and neglect, left-sided sensory deficit, left-sided horizontal gaze, left-sided facial weakness, aphasia, ataxia, and oropharyngeal dysphagia. She will need intensive medical management, nursing, PT, OT and speech therapy to ensure the best opportunity to return her back to her prior level of functioning. COMORBIDITIES: In this patient include dysarthria, aphasia, ataxia, left-sided neglect, impulsivity, left-sided weakness, horizontal gaze, left-sided tongue deviation, fatigue, weakness, coronary artery disease, COPD, hyperlipidemia, hypertension, diabetes, and tobacco use. PAST MEDICAL HISTORY: Significant for coronary artery disease, COPD, hypertension, hyperlipidemia, diabetes, and tobacco use. PAST SURGICAL HISTORY: Includes PTCA with stent. ALLERGIES: MALENA INHIBITORS. CURRENT MEDICATIONS: Include Neurontin 100 mg daily, Glucophage 1000 mg b.i.d., hydrochlorothiazide 25 mg daily. She is on Amaryl 2 mg daily. She is on Vasotec 20 mg daily. She is on Cardizem 120 mg daily, Plavix 75 mg daily, carvedilol 25 mg b.i.d. with meals, Neurontin 200 mg at bedtime, Pravachol 80 mg at bedtime, niacin 500 mg at bedtime, isosorbide 30 mg b.i.d., DuoNeb updrafts p.r.n., Robitussin-DM as needed, and BuSpar 7.5 b.i.d., and MiraLax 17 grams in 8 ounces of water daily. HABITS: Does have a history of tobacco use. FAMILY HISTORY: Noncontributory. HISTORY AND PHYSICAL [id number] CATINA HERNDON SOCIAL HISTORY: Once again, the patient worked upstairs in the ICU as a telephone clerk. She is going to require a lot of management to get her back to her prior level of functioning if possible. REVIEW OF SYSTEMS: Unable to obtain secondary to her aphasia. PHYSICAL EXAMINATION: VITAL SIGNS: Stable. She is afebrile. GENERAL: A somewhat obese female, in no acute distress, alert upon exam. HEENT: Normocephalic and atraumatic. Mucosa moist. NECK: Supple. No lymphadenopathy. LUNGS: Clear at this time. HEART: Regular rate and rhythm. ABDOMEN: Benign. EXTREMITIES: No clubbing, cyanosis or edema. NEUROLOGIC: Consistent with a CVA. LABORATORY DATA: White count is 19.9, H&H 15 and 45, and platelet count was noted to be 253. Sodium 136, potassium 3.5, BUN and creatinine of 27 and 0.6 and blood sugars noted to be 123. ASSESSMENT: This is a 62-year-old female patient admitted to rehab with a working diagnosis of cerebrovascular accident with left body involvement. The patient has potential to make improvement. We instituted the following multidisciplinary therapies including to, but not limited to physical, occupational and speech, nutritional services, prosthetics and orthotics. Given her complex condition and risk for more complications, rehabilitation services cannot be provided at a low level of care such as a senior care facility. PLAN: 1. Admit to [facility] rehab for intensive inpatient therapy to include the following disciplines: A. Physical therapy to improve gait, all transfer skills and bed mobility to a modified independent level. B. Occupational therapy to improve activities of daily living to a modified independent level. C. Case management to assist with discharge planning and placement options. D. Nutrition to assist with nutritional needs. E. Rehabilitation nursing to assist in monitoring the patient underlying medical conditions and to assist with any type of bowel or bladder management. 2. The patient's current medications and medical care will be continued. 3. We will have her followup to speech therapy here. 4. We will go ahead and check a vitamin D level and TSH on Sunday. 5. We will discuss this patient during care team staff meeting this week. TRANSINT:[id number] Voice Confirmation ID: [id number] DOCUMENT ID: [id number] KURTIS notes whether there has been none or any medical/functional change since admission: - No change since pre-admission screen. KURTIS attests patient continues to be appropriate for IRF: - Continues to be appropriate. HISTORY AND PHYSICAL [id number] CATINA HERNDON SCOTT MD at 1313 CC: [id number] DICTATION DATE: 04/13/17 0823 ARTISTIC ASSOCIATE: 04/13/17 1046 ADM IN [place] [id number] [place] [id number]
--- NOTE | 2017-04-17 15:34 | NUR ---
LYING IN BED ON RIGHT SIDE EYES CLOSED RESTING. APPROPRIATE RISE AND FALL OF CHEST. NO S/SX OF ACUTE DISTRESS NOTED. CALL LIGHT AND PERSONAL ITEMS WITHIN REACH, BED LOW AND ALARM ON. WILL CONTINUE TO MONITOR
--- NOTE | 2017-04-17 18:03 | NUR ---
SITTING UP IN BED VISITING WITH FAMILY. DENIES ANY NEED OR PAIN. NO S/SX OF ACUTE DISTRESS NOTED. CALL LIGHT AND PERSONAL ITEMS WITHIN REACH, BED LOW AND ALARM ON. WILL CONTINUE TO MONITOR
--- NOTE | 2017-04-17 19:35 | NUR ---
IN BED, AWAKE. LYING IN PARTIAL LEFT SIDE POSITION. DENIES NEEDS.
--- NOTE | 2017-04-17 20:00 | NUR ---
TURNED PATIENT TO PARTIAL RIGHT SIDELYING POSITION PER HER REQUEST.
[2017-04-17 21:40] VITALS: BP 110/64
--- NOTE | 2017-04-17 21:40 | NUR ---
ASSESSMENT AND HS MEDS COMPLETE. GAVE PATIENT NORCO 5/325 X1 TAB PO FOR PAIN LEVEL OF 6/10 IN BILAT HIPS. TURNED HER TO LEFT SIDELYING POSITION. SON VISITING AT PRESENT.
--- NOTE | 2017-04-18 00:10 | NUR ---
RESTING QUEITLY IN PARTIAL RIGHT SIDELYING POSITION. SEATED AT BEDSIDE.
--- NOTE | 2017-04-18 01:55 | NUR ---
CONTINUES IN BED, EYES CLOSED. NO DISTRESSSS APPARENT. SLEEPING IN RECLINER AT BEDSIDE.
--- NOTE | 2017-04-18 04:30 | NUR ---
PATIENT AWAKE. NOW LYING PARTIALLY ON LEFT SIDE. HOB UP 20 DEGREES. SON SEATED IN RECLINER AT BEDSIDE HAVING REPLACED PATIENT'S . PATIENT DENIES CURRENT NEEDS.
--- NOTE | 2017-04-18 05:30 | NUR ---
FSBS 148. REMAINS IN LEFT SIDELYING POSITION. DENIES NEEDS.
[2017-04-18 06:52] LABS: BASOPHILS 0.6 % (0-2); EOSINOPHILS 1.9 % (0-7); HEMATOCRIT 46.1 % (36.0-48.0); HEMOGLOBIN 15.5 g/dL (12-16); IMMATURE GRANULOCYTES 0.5 % (0-5); MCH 29.9 pg (26.0-34.0); MCHC 33.6 g/dL (31.0-37.0); MCV 88.8 fL (80.0-100.0); MEAN PLATELET VOLUME 10.5 fL (7.4-10.4); MONOCYTES 10.6 % (2-11); NEUTROPHILS 65.4 % (40-80); PLATELET COUNT 287 10x3/uL (130-400); RBC 5.19 10x6/uL (4.00-5.40); WBC 8.1 10x3/uL (4.8-10.8)
[2017-04-18 07:03] LABS: ANION GAP 16.4 mmol/L (8-16); CALCIUM 10.1 mg/dL (8.5-10.1); CARBON DIOXIDE 24.7 mmol/L (21.0-32.0); CREATININE - SERUM 1.1 mg/dL (0.6-1.3); POTASSIUM - SERUM 4.1 mmol/L (3.5-5.1)
[2017-04-18 07:56] VITALS: BP 115/66
--- NOTE | 2017-04-18 10:16 | NUR ---
SITTING UP IN BED VISITING WITH FAMILY. DENIES ANY NEEDS OR PAIN. CALL LIGHT AND PERSONAL ITEMS WITHIN REACH, BED LOW AND ALARM ON. WILL CONTINUE TO MONITOR
--- NOTE | 2017-04-18 13:32 | NUR ---
PT RESTING IN BED, DENIES NEEDS. WCTM.
--- NOTE | 2017-04-18 15:39 | NUR ---
CARE TEAM MEETING: SON ATTENDED MEETING. QUESTIONS AND CONCERNS ADDRESSED. WILL CONTINUE TO FOLLOW WITH PATIENT AND WILL ASSIST FAMILY WITH ANY NEEDS. PATIENT WILL BE RA AT NEXT MEETING.
--- NOTE | 2017-04-18 16:39 | NUR ---
CLINICALS FAXED TO [facility] AT [facility] FAXED TO , AUTH. # [id number], CONFORMATION RECIEVED
--- NOTE | 2017-04-18 17:38 | NUR ---
PT EATING DINNER, DENIES NEEDS. WCTM.
--- NOTE | 2017-04-18 19:35 | NUR ---
PT. IN BED WITH HOB UP FOR COMFORT AND LYING ON HER SIDE. PT. CONVERSING WITH SON. ASSESSMENT COMPLETED. CALL LIGHT WITHIN REACH.
[2017-04-18 20:00] VITALS: BP 118/55
--- NOTE | 2017-04-18 23:10 | NUR ---
PT. IN BED WITH HOB AND FOB ELEVATED FOR COMFORT. EYES CLOSED AND RESP. EVEN. FAMILY MEMBER AT BEDSIDE. CALL LIGHT WITHIN REACH.
--- NOTE | 2017-04-19 03:05 | NUR ---
PT. IN BED WITH HOB UP AND LYING ON HER SIDE. FAMILY MEMBER AT BEDSIDE. PT'S EYES ARE CLOSED AND RESP. EVEN. CALL LIGHT WITHIN REACH.
[2017-04-19 08:11] VITALS: BP 130/61
--- NOTE | 2017-04-19 10:00 | NUR ---
LYING IN BED WITH SIDE RAILS UP X2. CALL LIGHT WITHIN REACH. ASSISTED PT UP IN BED. SPOUSE AT BEDSIDE. NO NEEDS
--- NOTE | 2017-04-19 13:31 | NUR ---
RECIEVED UP WITH THERAPY THIS AM. MAX ASSIST X2 THERAPIST TO BED. DENIES ANY PAIN OR DISCOMFORT. CALL LIGHT IN REACH.
--- NOTE | 2017-04-19 19:20 | NUR ---
PT. IN BED WITH HOB UP FOR COMFORT AND IS VISITING W/SON. ASSESSMENT COMPLETED. NO VOICED NEEDS AT THIS TIME AND HER CALL LIGHT IS WITHIN REACH.
[2017-04-19 19:55] VITALS: BP 103/53
--- NOTE | 2017-04-19 23:08 | NUR ---
PT. IN BED WITH HOB UP FOR COMFORT AND LYING ON HER LEFT SIDE. EYES CLOSED AND RESP. EVEN. SPOUSE AT SIDE. CALL LIGHT WITHIN REACH.
--- NOTE | 2017-04-20 03:05 | NUR ---
PT. IN BED WITH HOB UP FOR COMFORT AND IS LYING ON HER SIDE. EYES CLOSED AND RESP. EVEN. CALL LIGHT WITHIN REACH.
--- NOTE | 2017-04-20 08:00 | NUR ---
PATIENT ALERT/ORIENT X4. LEFT ARM FLACCID. LEFT LEG VERY WEEK. BED BATH GIVEN. TOTAL ASST OF TWO.
--- NOTE | 2017-04-20 08:00 | NUR ---
PATIENT IS VERY CONFUSED. TRYING TO GET OUT OF BED BY SELF. BED/CHAIR ALARM ON AT ALL TIMES. PATIENTS ROOM BY NURSING STATION. CALL LIGHT WITHIN REACH.
[2017-04-20 08:36] VITALS: BP 108/67
--- NOTE | 2017-04-20 09:05 | NUR ---
PRN PAIN MEDICATION GIVEN FOR BILATERAL HIP PAIN PER PATIENT REQUEST
--- NOTE | 2017-04-20 09:44 | NUR ---
PATIENT IN REHAB ROOM. WORKING WITH OCCUPATIONAL THERAPIST. DENIES ANY PAIN/DISC AT THIS TIME
--- NOTE | 2017-04-20 13:03 | NUR ---
IN ROOM WITH PATIENT. PATIENT SITTING UP IN CHAIR ATE 50% OF LUNCH
--- NOTE | 2017-04-20 17:30 | NUR ---
SITTING UP IN BED EATING SUPPER.
[2017-04-20 19:30] VITALS: BP 132/74
--- NOTE | 2017-04-20 19:30 | NUR ---
RECIEVED UP IN BED ON HER LEFT SIDE WITH FAMILY AT BEDSIDE. ALERT AND ORIENTED. SPEECH SLURRED. C/O PAIN ON HER BOTTOM. NO REDNESS OBSERVED. TURNED AND REPOSITIONED AND STATED "THATS MUCH BETTER". CALL LIGHT AND PERSONAL BELONGINGS PLACE ON RIGHT SIDE IN REACH.
--- NOTE | 2017-04-21 | NUR ---
RESTING IN BED WITH EYES CLOSED. SPOUSE AT BED SIDE. NO S/S OF DISTRESS OBSERVED. CALL LIGHT IN REACH.
--- NOTE | 2017-04-21 02:08 | NUR ---
RESTING IN BED WITH EYES CLOSED. NO S/S OF DISTRESS OBSERVED. SPOUSE AT BEDSIDE WITH EYES CLOSED. CALL LIGHT AND OVERBED TABLE IN REACH.
--- NOTE | 2017-04-21 04:53 | NUR ---
RESTING IN BED WITH EYES CLOSED. NO S/S OF DISTRESS OBSERVED.
--- NOTE | 2017-04-21 07:56 | NUR ---
SITTING UP IN BED VISITING FAMILY. DENIES ANY PAIN OR NEEDS. NO S/SX OF ACUTE DISTRESS NOTED. ALERT AND ORIENTED X4. CALL LIGHT AND PERSONAL ITEMS WITHIN REACH, BED LOW AND ALARM ON. WILL CONTINUE TO MONITOR
[2017-04-21 08:33] VITALS: BP 122/73
--- NOTE | 2017-04-21 10:06 | NUR ---
LYING IN BED EYES CLOSED RESTING. APPROPRIATE RISE AND FALL OF CHEST. NO S/SX OF RESPIRATORY DISTRESS NOTED. CALL LIGHT AND PERSONAL ITEMS WITHIN REACH, BED LOW, SR X3, BED ALARM ON. WILL CONTINUE TO MONITOR
[2017-04-21 19:33] VITALS: BP 102/50
--- NOTE | 2017-04-21 19:51 | NUR ---
RECIEVED UP IN BED WITH EYES OPEN AND MANY FAMILY MEMBERS AT BEDSIDE. DENIES ANY PAIN OR DISCOMFORT. CALL LIGHT AND OVERBED TABLE IN REACH.
--- NOTE | 2017-04-21 23:39 | NUR ---
RESTING IN BED WITH EYES CLOSED. FAMILY AT BEDSIDE. NO S/S OF DISTRESS OBSERVED. CALL LIGHT IN REACH.
--- NOTE | 2017-04-22 04:46 | NUR ---
RESTING IN BED WITH EYES CLOSED. NO S/S OF DISTRESS OBSERVED. CALL LIGHT AND OVERBED TABLE IN REACH.
--- NOTE | 2017-04-22 07:44 | NUR ---
LYING IN BED VISITING WITH FAMILY. DENIES ANY NEEDS OR PAIN. NO S/SX OF ACUTE DISTRESS NOTED. CALL LIGHT AND PERSONAL ITEMS WITHIN REACH, BED LOW AND ALARM ON. WILL CONTINUE TO MONITOR
[2017-04-22 08:40] VITALS: BP 142/79
--- NOTE | 2017-04-22 11:22 | NUR ---
OFF FLOOR WITH ALEXI LAWRENCE VISITING ICU STAFF VIA W/C
--- NOTE | 2017-04-22 13:38 | NUR ---
ASSISTED PT WITH REPOSITIONING TO LEFT SIDE. DENIES ANY NEEDS OR PAIN. CALL LIGHT AND WATER WITHIN REACH, BED LOW AND ALARM ON. FAMILY AT BEDSIDE. WILL CONTINUE TO MONITOR
--- NOTE | 2017-04-22 14:01 | NUR ---
PT RESTING IN BED, VISITORS AT BEDSIDE, DENIES NEEDS. WCTM.
--- NOTE | 2017-04-22 16:05 | NUR ---
SITTING UP IN BED EYES CLOSED RESTING. FAMILY AT BEDSIDE. NO S/SX OF RESPIRATORY DISTRESS NOTED. CALL LIGHT AND PERSONAL ITEMS WITHIN REACH, BED LOW AND ALARM ON. WILL CONTINUE TO MONITOR
[2017-04-22 19:36] VITALS: BP 121/55
--- NOTE | 2017-04-22 19:36 | NUR ---
RECIEVED UP IN BED WITH C/O BEING INCONTINENT. REQUIRED COMPLETE BED CHANGE. XL BM THAT IS LIQUID. STATES"MY STOMACH HURT SO BAD". ASKED IF HER STOMACH STILL HURT AND SHE REPLIED " NO. I FEEL BETTER NOW." REPOSITIONED AT THAT TIME. FAMILY RETURNED TO BEDSIDE. DENIES ANY PAIN. ALERT AND ORIENTED. PLEAASANT AND COOPERATIVE. CALL LIGHT AND OVERBED TABLE IN REACH.
--- NOTE | 2017-04-23 03:00 | NUR ---
RESTING IN BED WITH EYES CLSOED. NO S/S OF DISTRESS OBSERVED. FAMILY AT BEDSIDE.
[2017-04-23 07:22] LABS: BASOPHILS 0.3 % (0-2); EOSINOPHILS 1.2 % (0-7); HEMOGLOBIN 16.2 g/dL (12-16); IMMATURE GRANULOCYTES 0.8 % (0-5); LYMPHOCYTES 15.3 % (15-50); MCH 30.1 pg (26.0-34.0); MCHC 33.8 g/dL (31.0-37.0); MCV 89.1 fL (80.0-100.0); MEAN PLATELET VOLUME 11.7 fL (7.4-10.4); MONOCYTES 10.7 % (2-11); NEUTROPHILS 71.7 % (40-80); PLATELET COUNT 253 10x3/uL (130-400); RBC 5.39 10x6/uL (4.00-5.40); RDW 14.1 % (11.5-14.5); WBC 10.3 10x3/uL (4.8-10.8)
[2017-04-23 07:42] LABS: ANION GAP 15.9 mmol/L (8-16); CALCIUM 10.3 mg/dL (8.5-10.1); CARBON DIOXIDE 26.9 mmol/L (21.0-32.0); CREATININE - SERUM 1.4 mg/dL (0.6-1.3); POTASSIUM - SERUM 3.8 mmol/L (3.5-5.1)
[2017-04-23 09:52] VITALS: BP 146/76
--- NOTE | 2017-04-23 10:34 | NUR ---
SITTING UP IN BED. FAMILY IN ROOM WITH PT VISITING.
--- NOTE | 2017-04-23 16:10 | NUR ---
RESTING QUIETLY IN BED. EYES CLOSED. CALL LIGHT IN REACH. BED IN LOWEST POSITION
--- NOTE | 2017-04-23 19:25 | NUR ---
PT. IN BED WITH HOB UP FOR COMFORT AND LYING ON HER LEFT SIDE. SON IN ROOM WITH PT. ASSESSMENT COMPLETED. CALL LIGHT WITHIN REACH.
[2017-04-23 21:42] VITALS: BP 119/70
--- NOTE | 2017-04-23 23:10 | NUR ---
PT. IN BED WITH HOB UP FOR COMFORT AND LYING ON HER LEFT SIDE. EYES CLOSED AND RESP. EVEN WITH CALL LIGHT WITHIN REACH. SPOUSE IN ROOM WITH PT.
--- NOTE | 2017-04-24 03:08 | NUR ---
PT. IN BED WITH HOB UP FOR COMFORT LYING ON HER BACK. EYES CLOSED AND RESP. EVEN. CALL LIGHT WITHIN REACH. SPOUSE IN ROOM WITH PTAtif FERNANDEZ.
--- NOTE | 2017-04-24 07:51 | NUR ---
SITTING UP IN BED EATING BREAKFAST. ALERT AND ORIENTED X4. NO S/SX OF ACUTE DISTRESS NOTED. DENIES ANY PAIN OR NEEDS. CALL LIGHT AND PERSONAL ITEMS WITHIN REACH, BED LOW AND ALARM ON. WILL CONTINUE TO MONITOR
--- NOTE | 2017-04-24 10:00 | NUR ---
SITTING UP IN BED RECEIVING BREATHING TREATMENT. NO S/SX OF ACUTE DISTRESS NOTED. CALL LIGHT AND PERSONAL ITEMS WITHIN REACH, BED LOW AND ALARM ON. WILL CONTINUE TO MONITOR
[2017-04-24 10:30] VITALS: BP 115/49
--- NOTE | 2017-04-24 12:05 | NUR ---
Nutrition Follow Up: Pt was in therapy at the time of RD visit. Interview deferred. Pt is eating 29% meal avg on a regular diet. She is receiving Ensure TID. +BM 04/23/17. Meds and labs reviewed. Pt continues with very poor po intake. She is not meeting est nutritional needs. Rec continue current diet. Rec appetite stimulant. RD following.
--- NOTE | 2017-04-24 12:50 | NUR ---
SITTING UP IN W/C FAMILY AT SIDE. DENIES ANY PAIN OR NEEDS. NO S/SX OF ACUTE DISTRESS NOTED. CALL LIGHT AND PERSONAL ITEMS WITHIN REACH, W/C BRAKES LOCKED, BOX ALARM ON. WILL CONTINUE TO MONITOR
--- NOTE | 2017-04-24 14:14 | NUR ---
IN BED WORKING WITH SPEECH THERAPY.CL IN REACH.
--- NOTE | 2017-04-24 15:07 | NUR ---
LYING IN BED EYES CLOSED RESTING. NO S/SX OF RESPIRATORY DISTRESS NOTED. APPROPRITATE RISE AND FALL OF CHEST. CALL LIGHT AND WATER WITHIN REACH, BED LOW AND ALARM ON. WILL CONTINUE TO MONITOR
--- NOTE | 2017-04-24 17:07 | NUR ---
LYING IN BED ON RIGHT SIDE. SON AT BEDSIDE. DENIES ANY NEEDS OR PAIN. NO S/SX OF ACUTE DISTRESS NOTED. CALL LIGHT AND PERSONAL ITEMS WITHIN REACH, BED LOW AND ALARM ON. WILL CONTINUE TO MONITOR
--- NOTE | 2017-04-24 19:25 | NUR ---
PT. IN BED WITH HOB/FOB ELEVATED FOR COMFORT. PT. LYING ON HER RIGHT SIDE AND SPOUSE IS IN THE PROCESS OF TURNING HER. ASSESSMENT COMPLETED. PT. REPORTS HER STUFFY NOSE IS BETTER AFTER NURSE ADMIN. NASAL SPRAY. CALL LIGHT WITHIN REACH.
[2017-04-24 19:50] VITALS: BP 104/52
--- NOTE | 2017-04-24 23:13 | NUR ---
PT. IN BED LYING ON HER SIDE WITH HOB UP FOR COMFORT. EYES CLOSED AND RESP. EVEN. CALL LIGHT WITHIN REACH.
[2017-04-25] VITALS (8 sets, daily range): BP systolic 63–110; BP diastolic 39–55
--- NOTE | 2017-04-25 03:08 | NUR ---
PT. IN BED WITH HOB/FOB UP FOR COMFORT. EYES CLOSED AND RESP. EVEN. CALL LIGHT WITHIN REACH.
--- NOTE | 2017-04-25 07:10 | NUR ---
LYING IN BED EYES CLOSED RESTING. APPROPRIATE RISE AND FALL OF CHEST. NO S/SX OF ACUTE DISTRESS NOTED. CALL LIGHT AND PERSONAL ITEMS WITHIN REACH, BED LOW AND ALARM ON. WILL CONTINUE TO MONITOR
[2017-04-25 07:55] LABS: BASOPHILS 0.5 % (0-2); HEMATOCRIT 47.6 % (36.0-48.0); IMMATURE GRANULOCYTES 1.1 % (0-5); LYMPHOCYTES 13.9 % (15-50); MCH 30.1 pg (26.0-34.0); MCHC 33.6 g/dL (31.0-37.0); MCV 89.5 fL (80.0-100.0); MEAN PLATELET VOLUME 11.1 fL (7.4-10.4); MONOCYTES 10.2 % (2-11); NEUTROPHILS 73.3 % (40-80); PLATELET COUNT 222 10x3/uL (130-400); RBC 5.32 10x6/uL (4.00-5.40); RDW 14.3 % (11.5-14.5); WBC 12.6 10x3/uL (4.8-10.8)
--- NOTE | 2017-04-25 08:01 | NUR ---
PT UP EATING BREAKFAST, DENIES NEEDS. WCTM.
[2017-04-25 08:19] LABS: ANION GAP 20.9 mmol/L (8-16); CARBON DIOXIDE 21.3 mmol/L (21.0-32.0); CREATININE - SERUM 3.4 mg/dL (0.6-1.3); POTASSIUM - SERUM 5.2 mmol/L (3.5-5.1)
--- NOTE | 2017-04-25 09:08 | NUR ---
ADMINISTERED MORNING MEDS WHOLE IN APPLESAUCE WITHOUT DIFFICULTY. DENIES ANY PAIN OR NEEDS. SON AT BEDSIDE. CALL LIGHT AND PERSONAL ITEMS WITHIN REACH, BED LOW AND ALARM ON. WILL CONTINUE TO MONITOR
--- NOTE | 2017-04-25 10:04 | NUR ---
LYING IN BED VISITING WITH FAMILY. DENIES ANY NEEDS OR PAIN. CALL LIGHT WITHIN REACH, BED LOW AND ALARM ON. WILL CONTINUE TO MONITOR
--- NOTE | 2017-04-25 10:45 | NUR ---
PT C/O OF FATIGUE. PT STATING SHE IS TOO TIRED FOR THERAPY. PT BP CHECKED AND WAS 65/39. PT PLACED IN [place]. PT BP UP TO 100/59. WCTM.
--- NOTE | 2017-04-25 15:00 | NUR ---
PT BP RUNNING LOW ALL DAY. DR SANTIAGO ADJUSTED MEDS AND PLACED CONSULT WITH DR LOVE. WCTM.
--- NOTE | 2017-04-25 18:34 | NUR ---
PT SITTING UP EATING DINNER, DENIES NEEDS. WCTM.
--- NOTE | 2017-04-25 19:00 | NUR ---
PATIENT IN BED, AWAKE. FAMILY MEMBER AT BEDSIDE.
--- NOTE | 2017-04-25 21:30 | NUR ---
ASSESSMENT AND HS MEDS COMPLETE. DENIES NEEDS.
--- NOTE | 2017-04-25 22:05 | NUR ---
RESTING QUIETLY IN BED, EYES CLOSED.
--- NOTE | 2017-04-26 00:10 | NUR ---
PATIENT IN BED, RESTING QUIETLY. DEPARTING. SON TO REPLACE HIM SHORTLY.
--- NOTE | 2017-04-26 02:20 | NUR ---
RESTING QUIETLY IN BED, HOB UP 20 DEGREES. APPEARS COMFORTABLE.
--- NOTE | 2017-04-26 04:10 | NUR ---
ASSISTED PATIENT TO TURN TO RIGHT SIDELYING POSITION. DENIES NEEDS TO URINATE AT THIS TIME.
--- NOTE | 2017-04-26 06:20 | NUR ---
FSBS 80. GAVE PATIENT 4 OZS APPLE JUICE TO SUSTAIN BLOOD SUGAR UNTIL BREAKFAST. WITH 'S ASSIST. REPOSITIONED PATIENT HIGHER UP IN BED AND PLACED HER ON THE BEDPAN TO URINATE.
--- NOTE | 2017-04-26 07:20 | NUR ---
RESTING QUIETLY IN BED. CALL LIGHT IN REACH. BED IN LOWEST POSITION.
--- NOTE | 2017-04-26 08:00 | NUR ---
PATIENT ALERT/ORIENT. CALL LIGHT WITHIN REACH. VOICES NO NEEDS AT THIS TIME. C/O OF SORE THROAT. DR. SANTIAGO AWARE OF.
--- NOTE | 2017-04-26 08:05 | NUR ---
PATIENT BLADDER SCANED. BLADDER SCAN SHOWES 499CC UNITS OF URINE IN BLADDER
[2017-04-26 08:15] VITALS: BP 84/45
--- NOTE | 2017-04-26 08:30 | NUR ---
DR. Jose M SANTIAGO HERE. NEW ORDERS RECEIVED.
--- NOTE | 2017-04-26 09:50 | NUR ---
DUGAN CATH 16FR INSERTED WITHOUT DIFFICULTY. 450CC OF CLEAR YELLOW URINE IN DUGAN CATH BAG
--- NOTE | 2017-04-26 10:01 | NUR ---
VISITORS IN ROOM. CAME OUT TO NURSES STATION. STATED PATIENT WAS NOT RESPONDING. THIS NURSE AND NURSE ASST RAN INTO ROOM. PATIENT NOT RESPONSIVE. CALLED A RAPID RESPONSE.
--- NOTE | 2017-04-26 10:03 | NUR ---
PATIENT STOPED BREATHING CODE BLUE CALLED.
--- NOTE | 2017-04-26 10:10 | NUR ---
DR Jose M VALDES.
--- NOTE | 2017-04-26 10:10 | NUR ---
FIDE SON NOTIFIED STATED THAT HE WILL CONTACT OTHER FAMILY MEMBERS.
--- NOTE | 2017-04-26 10:27 | NUR ---
FAMILY MEMBERS HERE. CODE CALLED. SEE CODE BLUE SHEET. DR. SANTIAGO RETURNED PAGE. NOTIFIED OF .
--- NOTE | 2017-04-26 10:40 | NUR ---
ARIK CALLED, NOTIFIED OF . FAMILY HAS DECIDED ON [facility]
--- NOTE | 2017-04-26 11:02 | NUR ---
THROAT CULTURE DONE. TAKEN UP TO LAB.
--- NOTE | 2017-04-26 11:21 | NUR ---
FAMILY REMAINS IN ROOM WITH BODY.
--- NOTE | 2017-04-26 11:48 | NUR ---
PATIENT WITH NO VITAL SIGNS, FAMILY AT BEDSIDE.
--- NOTE | 2017-04-26 11:51 | NUR ---
NOTIFIED PANFILO AT [facility]. AUTH# [id number], PHONE . THAT PATIENT HAS .
--- NOTE | 2017-04-26 12:14 | NUR ---
[facility] HERE TALKING TO .
--- NOTE | 2017-06-07 14:37 | DS ---
PATIENT:CATINA HERNDON :53 MEDICAL RECORD: [id number] DISCHARGE SUMMARY ADMISSION DATE: 04/12/17 DISCHARGE DATE: 04/26/17 This is a summary dated 04/26/2017 from inpatient rehab. 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 SECONDARY DIAGNOSES: 1. Left side weakness. 2. Aphasia. 3. Oropharyngeal dysphagia. 4. Hyponatremia. 5. Hyperkalemia. 6. Hypertension. 7. Diabetes. 8. Coronary artery disease. 9. COPD. 10. Hyperlipidemia. 11. Tobacco abuse. HOSPITAL COURSE: Full H&P is located elsewhere on the chart on this 62-year-old female who was admitted to inpatient rehab for physical therapy and occupational therapy to improve gait, transfer skills, bed mobility, and activities of daily living to a modified independent level. She was evaluated by PT and OT and their plans of care were followed. She was seen by speech therapy for management of aphasia and oropharyngeal dysphagia. She was evaluated by ST and their plans of care were followed as well. Electrolytes were managed by protocol. Fingerstick blood sugars were monitored throughout her hospital stay with appropriate adjustment in medications as needed. She had an increase in BUN and creatinine, nephrology was consulted. She remained on DuoNebs for respiratory support. She was found unresponsive. Code blue was called with appropriate ACLS protocols, resuscitation was unsuccessful. Family requested that CPR be discontinued. She was pronounced at around 10:30 p.m. DISCHARGE DISPOSITION: The body was released to the home. TRANSINT:[id number] Voice Confirmation ID: [id number] DOCUMENT ID: [id number] Dictated By: SASHA CATALAN I have interviewed/examined the above patient and agree with these documented findings. RAUDEL SANTIAGO MD at 1802 at 1437 CC: [id number] DICTATION DATE: 06/03/17 1521 MINESWEEPING OFFICER: 06/04/17 0202 DIS IN 04/26/17 [facility] [address] [place] [address]
== END 2017-04-26 13:20 | DRG 65 ==
LOC: D.REHAB 14:49
PROVIDERS: ADMIT Emergency Medicine
PROC: 0BH17EZ Insertion of Endotracheal Airway into Trachea, Via Natural or Artificial Opening (ICD-10-PCS; principal; 2017-04-26)
DX: I63.9 Cerebral infarction, unspecified (principal); G81.04 Flaccid hemiplegia affecting left nondominant side; I47.2 Ventricular tachycardia; N18.4 Chronic kidney disease, stage 4 (severe); N17.9 Acute kidney failure, unspecified; R47.01 Aphasia; R47.1 Dysarthria and anarthria; R13.12 Dysphagia, oropharyngeal phase; R45.87 Impulsiveness; R53.83 Other fatigue; I25.10 Atherosclerotic heart disease of native coronary artery without angina pectoris; R29.810 Facial weakness; J44.9 Chronic obstructive pulmonary disease, unspecified; E78.5 Hyperlipidemia, unspecified; F17.200 Nicotine dependence, unspecified, uncomplicated; I46.9 Cardiac arrest, cause unspecified; E11.22 Type 2 diabetes mellitus with diabetic chronic kidney disease; I12.9 Hypertensive chronic kidney disease with stage 1 through stage 4 chronic kidney disease, or unspecified chronic kidney disease